=== PATIENT | female | born 1965 | race Caucasian/White ===

== ENCOUNTER 2018-03-27 10:41 | Outpatient (CLI) | payer BC ==
--- NOTE | 2018-03-27 11:42 | RAD ---
CERVICAL SPINE 7 VIEWS INCLUDING FLEXION AND EXTENAION LATERAL VIEWS AND OBLIQUE VIEWS: History: 52-year-old female with history of cervical spondylosis. Prior surgery. FINDINGS: Anterior metal plate and screws and anterior cervical fusion changes noted at C4, C5, C6 and C7 with intradiscal prosthesis. No significant abnormal prevertebral soft tissue swelling. No abnormal transl ation between flexion and extension. Mild anterolisthesis of C6 on T1 without abnormal translation be tween flexion and extension. IMPRESSION: Anterior cervical fusion changes from C4 through C7. Mild anterolisthesis of C7 on T1 without abnorma l translation between flexion and extension. Some generalized facet arthrosis. No prevertebral soft t issue swelling. POS: [facility]
== END 2018-03-27 10:42 | disposition home or self-care (01) ==
LOC: BICRAD 10:41
PROVIDERS: ATTEND Anesthesiology Pain Medicine
DX: M47.812 Spondylosis without myelopathy or radiculopathy, cervical region (principal); M47.12 Other spondylosis with myelopathy, cervical region; Z98.1 Arthrodesis status
CPT/HCPCS: 72052

== ENCOUNTER 2019-08-04 12:32 | Outpatient (CLI) | payer BC ==
--- NOTE | 2019-08-04 13:28 | MRI ---
MRI CERVICAL SPINE WITHOUT CONTRAST: HISTORY: Cervical radiculopathy at C5. Dystonia.. COMPARISON: 11/10/2018. FINDINGS: Straightening of cervical lordosis likely positional. Patient has an anterior fusion plate with trans vertebral body screw from C4 through C7. Disc prosthesis from C4-C5 through C6-C7 is noted. Associated metallic susceptibly artifact. Visualized cervical vertebrae have an appropriate T1 marrow signal intensity. No definite fracture. No significant STIR hyperintensity to suggest vertebral body edema or ligamentous injury. C2-C3: No significant central canal stenosis or significant neural foraminal narrowing. C3-C4: Broad-based disc-osteophyte complex abuts the thecal sac. No significant central canal stenosi s. Moderate right neural foraminal narrowing due to uncovertebral and facet hypertrophy. Left neural foramen is mildly narrowed due to uncovertebral and facet hypertrophy. C4-C5: Broad-based osteophyte ridge. No significant central canal stenosis or significant neural fora cedric narrowing. C5-C6: Broad-based osteophyte ridge with a small central/left paracentral osteophyte. Mild deformity the left hemicord. Mild central canal stenosis. Neural foramina are patent. C6-C7: Broad-based osteophyte ridge minimally flattens the thecal sac. Mild central canal stenosis. M ild bilateral foraminal narrowing. C7-T1: No significant central canal stenosis or significant neural foraminal narrowing. IMPRESSION: 1. Cervical fusion from C4 through C7. 2. No significant central canal stenosis throughout the cervical spine. 3. Bilaterally, the neural foramina are patent at the C4-C5 level. There is no evidence of significan t foraminal stenosis to explain C5 symptoms. Transcribed Date/Time: 08/04/2019 1:34 PM
== END 2019-08-04 12:33 | disposition home or self-care (01) ==
LOC: SCSMRI 12:32
PROVIDERS: ATTEND Anesthesiology Pain Medicine
DX: M54.12 Radiculopathy, cervical region (principal); G24.3 Spasmodic torticollis; Z98.1 Arthrodesis status
CPT/HCPCS: 72141

== ENCOUNTER 2020-06-27 09:15 | Outpatient (CLI) | payer BC | END 2020-06-27 09:16 | disposition home or self-care (01) | LOC: TBSIIMAG 09:15 | PROVIDERS: ATTEND Anesthesiology Pain Medicine | DX: S22.050A Wedge compression fracture of T5-T6 vertebra, initial encounter for closed fracture (principal); M54.16 Radiculopathy, lumbar region; M51.84 Other intervertebral disc disorders, thoracic region | CPT/HCPCS: 72146; 72148 ==

== ENCOUNTER 2022-07-31 13:37 | Outpatient (CLI) | payer BC | END 2022-07-31 13:38 | disposition home or self-care (01) | LOC: SCSMRI 13:37 | PROVIDERS: ATTEND Neurological Surgery | DX: M47.22 Other spondylosis with radiculopathy, cervical region (principal); R51.9 Headache, unspecified; M48.02 Spinal stenosis, cervical region; Z98.1 Arthrodesis status | CPT/HCPCS: 70551; 72141 ==